=== PATIENT | female | born 1975 | race Caucasian/White ===

== ENCOUNTER 2018-07-30 16:41 | Emergency (ER) | payer MEDICAID ==
[2018-07-30 16:47] VITALS: BP 135/87
[2018-07-30] MEDS ORDERED: DIPH/PERTUSS(ACELL)/TETANUS VAC/PF 0.5 ML SYR (>=10YO) IM ONE (17:22)
[2018-07-30] MEDS ORDERED: CEPHALEXIN 500 MG CAPSULE PO ONE (17:22)
[2018-07-30] MEDS ORDERED: CIPROFLOXACIN HCL 500 MG TABLET PO ONE (17:22)
--- NOTE | 2018-07-30 17:57 | ER Document Report ---
HPI - HPI Patient complains to provider of: Puncture wound to foot Onset: Just prior to arrival Onset/Duration: Sudden Quality of pain: Achy Pain Level: 1 Context: Patient states she was walking in her yard and stepped on a board. Patient had to rest details puncture through her shoe and into her foot. Associated Symptoms: Other - Puncture wound to foot Exacerbated by: Walking Relieved by: Denies Similar symptoms previously: No Recently seen / treated by doctor: No - ROS ROS below otherwise negative: Yes Systems Reviewed and Negative: Yes All other systems reviewed and negative - CONSTITUTIONAL Constitutional: DENIES: Fever - MUSCULOSKELETAL Musculoskeletal: REPORTS: Extremity pain - DERM Skin Problems: Puncture Wound Past Medical History - General Information source: Patient - Social History Smoking Status: Never Smoker Chew tobacco use (# tins/day): No Frequency of alcohol use: Occasional Drug Abuse: None Occupation: Medical billing Lives with: Family Family History: Reviewed & Not Pertinent Patient has suicidal ideation: No Patient has homicidal ideation: No - Medical History Medical History: Negative Renal/ Medical History: Denies: Hx Peritoneal Dialysis Past Surgical History: Reports: Hx Cardiac Catheterization - x3 Vertical Provider Document - CONSTITUTIONAL Agree With Documented VS: Yes Exam Limitations: No Limitations General Appearance: WD/WN, No Apparent Distress - INFECTION CONTROL TRAVEL OUTSIDE OF THE [place] IN LAST 30 DAYS: No - HEENT HEENT: Atraumatic, Normocephalic - NECK Neck: Normal Inspection - RESPIRATORY Respiratory: Breath Sounds Normal, No Respiratory Distress - CARDIOVASCULAR Cardiovascular: Regular Rate, Regular Rhythm Pulses: Normal: Dorsalis pedis - MUSCULOSKELETAL/EXTREMETIES Musculoskeletal/Extremeties: MAEW - NEURO Level of Consciousness: Awake, Alert, Appropriate Motor/Sensory: No Motor Deficit - DERM Integumentary: Warm, Dry Notes: Puncture wound x2 to plantar surface of left foot, visible retained foreign body to 1 of the puncture wounds. Course - Re-evaluation Re-evalutation: 07/30/18 18:38 Puncture wounds were anesthetized with 1% lidocaine and wound explored, bits of dark material concerning for pieces of the shoe were removed from the wound. - Vital Signs Vital signs: Temp Pulse Resp BP Pulse Ox 97.8 F 63 18 135/87 H 100 07/30/18 16:46 07/30/18 16:46 07/30/18 16:46 07/30/18 16:46 07/30/18 16:46 Discharge - Discharge Clinical Impression: Foreign body in subcutaneous tissue Puncture wound of foot, left Qualifiers: Encounter type: initial encounter Qualified Code(s): S91.332A - Puncture wound without foreign body, left foot, initial encounter Condition: Stable Disposition: HOME, SELF-CARE Instructions: Prophylactic Antibiotic ([facility]), Puncture Wound ([facility]), Tetanus Immunization Given ([facility]) Additional Instructions: Return immediately for any new or worsening symptoms Followup with your primary care provider, call tomorrow to make a followup appointment Immediately for any signs of infection including increased pain, fever, redness purulent drainage or any other concerns Prescriptions: Cephalexin Monohydrate [Keflex 500 mg Capsule] 500 mg PO Q6H 5 Days capsule Ciprofloxacin HCl [Cipro 500 mg Tablet] 500 mg PO BID #10 tablet Referrals: [facility]) [Provider Group] - Follow up as needed
== END 2018-07-30 18:53 | disposition home or self-care (01) ==
LOC: ER 16:41
DX: S91.342A Puncture wound with foreign body, left foot, initial encounter (principal); W45.0XXA Nail entering through skin, initial encounter
CPT/HCPCS: 99283; 90471; 90715; J3490

== ENCOUNTER → 2018-08-25 | Outpatient (CLI) | payer MEDICAID ==
--- NOTE | 2018-08-25 17:08 | RADIOLOGY REPORT (SQ) ---
EXAM DESCRIPTION: LUMBAR SPINE 2 VIEWS COMPLETED DATE/TIME: 08/25/2018 4:51 pm REASON FOR STUDY: LOW BACK PAIN M54.5 LOW BACK PAIN COMPARISON: None. NUMBER OF VIEWS: Two views. TECHNIQUE: AP and lateral radiographic images acquired of the lumbar spine. LIMITATIONS: None. FINDINGS: MINERALIZATION: Normal. SEGMENTATION: Normal. No transitional anatomy. ALIGNMENT: Normal. VERTEBRAE: Maintained height. No fracture or worrisome bone lesion. DISCS: Disc space loss of height at T11-12, L4-5, and L5-S1 POSTERIOR ELEMENTS: Pedicles and facets are intact. No pars defect or posterior arch defects. HARDWARE: None in the spine. PARASPINAL SOFT TISSUES: Normal. PELVIS: Not included in the field of view. SI joints unremarkable OTHER: No other significant finding. IMPRESSION: Mild degenerative disc changes as above TECHNICAL DOCUMENTATION: JOB ID: [id number] [employer]- All Rights Reserved Reading location - IP/workstation name: [email or web address]
== END ==
LOC: OD 16:20
PROVIDERS: ATTEND Family Medicine
DX: M54.5 Low back pain (principal)
CPT/HCPCS: 72100

== ENCOUNTER → 2018-12-12 | Outpatient (CLI) | payer BC ==
--- NOTE | 2018-12-12 17:58 | RADIOLOGY REPORT (SQ) ---
EXAM DESCRIPTION: SHOULDER RIGHT 2 OR MORE VIEWS COMPLETED DATE/TIME: 12/12/2018 5:39 pm REASON FOR STUDY: PAIN IN RIGHT SHOULDER M25.511 PAIN IN RIGHT SHOULDER COMPARISON: None. NUMBER OF VIEWS: Three views. TECHNIQUE: Internal rotation, external rotation, and Y view images acquired of the right shoulder. LIMITATIONS: None. FINDINGS: MINERALIZATION: Normal. BONES: No acute fracture or dislocation. No worrisome bone lesions. JOINTS: No glenohumeral dislocation. Acromioclavicular joint unremarkable. VISUALIZED LUNGS AND RIBS: No pneumothorax. No rib fracture. SOFT TISSUES: No radiopaque foreign body. OTHER: No other significant finding. IMPRESSION: NEGATIVE STUDY OF THE RIGHT SHOULDER. NO RADIOGRAPHIC EVIDENCE OF ACUTE INJURY. TECHNICAL DOCUMENTATION: JOB ID: [id number] [employer]- All Rights Reserved Reading location - IP/workstation name: [email or web address]
== END ==
LOC: OD 17:13
PROVIDERS: ATTEND Family Medicine Geriatric Medicine
DX: M75.101 Unspecified rotator cuff tear or rupture of right shoulder, not specified as traumatic (principal); M25.511 Pain in right shoulder

== ENCOUNTER → 2018-12-13 | Outpatient (CLI) | payer BC ==
--- NOTE | 2018-12-13 12:23 | WOMENS IMAGING REPORT ---
EXAM DESCRIPTION: U/S PELVIS NON-OB COMPLETED DATE/TIME: 12/13/2018 9:40 am REASON FOR STUDY: MENORRHAGIA WITH REGULAR CYCLE;N92.0 Z12.31 ENCNTR SCREEN MAMMOGRAM FOR MALIGNANT NEOPLASM OF ARLEN COMPARISON: None. TECHNIQUE: Dynamic and static grayscale images acquired of the pelvis via transabdominal approach an d recorded on PACS. Additional selected color Doppler and spectral images recorded. LIMITATIONS: None. FINDINGS: UTERUS: Uterus measures 10 x 5 x 6 cm in size. Small posterior uterine body fibroid, 2 cm in size. ENDOMETRIAL STRIPE: No focal or generalized thickening. No masses. 9 mm thickness. CERVIX: No nabothian cysts. RIGHT OVARY AND DOPPLER: Normal size, 3.7 x 2.8 x 2.2 cm. No worrisome masses. Normal arterial vascul ar flow without evidence for torsion. LEFT OVARY AND DOPPLER: Normal size, 3.2 x 1.6 x 2.2 cm. No worrisome masses. Normal arterial vascula r flow without evidence for torsion. FREE FLUID: None noted. OTHER: No other significant finding. IMPRESSION: ESSENTIALLY NORMAL PELVIC ULTRASOUND FOR AGE, TRANSABDOMINAL SCAN. TECHNICAL DOCUMENTATION: JOB ID: [id number] [employer]- All Rights Reserved Rev-03/18 Reading location - IP/workstation name: [email or web address]
== END ==
LOC: WI 07:54
PROVIDERS: ATTEND Family Medicine
DX: N92.0 Excessive and frequent menstruation with regular cycle (principal)
CPT/HCPCS: 76856

== ENCOUNTER → 2020-07-18 | Outpatient (CLI) | payer BC, MEDICAID ==
--- NOTE | 2020-07-18 12:07 | WOMENS IMAGING REPORT ---
EXAM DESCRIPTION: 3D SCREENING MAMMO BILAT IMAGES COMPLETED DATE/TIME: 07/18/2020 11:25 am REASON FOR STUDY: Z12.31 Z12.31 ENCOUNTER FOR SCREENING MAMMOGRAM FOR MALIGNANT NEOPLASM OF B Z12.31 ENCNTR SCREEN MAMMOGRAM FOR MALIGNANT NEOPLASM OF ARLEN COMPARISON: 12/13/2018 EXAM PARAMETERS: Standard craniocaudal and mediolateral oblique views of each breast recorded using digital acquisition and breast tomosynthesis. Read with the assistance of CAD. .[facility] - R2 Vice President Risk Management Version 9.2 LIMITATIONS: None. FINDINGS: RIGHT BREAST MASSES: No suspicious masses. CALCIFICATIONS: No new or suspicious calcifications. ARCHITECTURAL DISTORTION: None. ASYMMETRY: Focal asymmetry upper outer quadrant about 6 cm deep to the nipple. OTHER: No other significant findings. LEFT BREAST MASSES: No suspicious masses. CALCIFICATIONS: No new or suspicious calcifications. ARCHITECTURAL DISTORTION: None. ASYMMETRY: None noted. OTHER: No other significant findings. IMPRESSION: Focal asymmetry right breast. 0 Incomplete: Needs Additional Imaging Evaluation and/or prior Mammograms for Comparison. BREAST DENSITY: b. There are scattered areas of fibroglandular density. BIRAD: ASSESSMENT: 0 Incomplete: Needs Additional Imaging Evaluation and/or prior Mammograms for C omparison. RECOMMENDATION: RECOMMENDED FOLLOW-UP: Cone compression views and potential ultrasound right breast. The patient will be contacted for additional imaging. COMMENT: The patient has been notified of the results by letter per MQSA requirements. Additional no tification policies are in place for contacting patient with suspicious or incomplete findings. Quality ID #225: The [employer] recommends an annual screening mammogram for women aged 40 years or over. This facility utilizes a reminder system to ensure that all patients receive reminder letters, and/or direct phone calls for appointments. This includes reminders for routine scr eening mammograms, diagnostic mammograms, or other Breast Imaging Interventions when appropriate. Th is patient will be placed in the appropriate reminder system. TECHNICAL DOCUMENTATION: FINDING NUMBER: (1) ASSESSMENT: (1) JOB ID: [id number] 2010 [employer]- All Rights Reserved Reading location - IP/workstation name: [email or web address]
== END ==
LOC: WI 10:52
PROVIDERS: ATTEND Family Medicine
DX: Z12.31 Encounter for screening mammogram for malignant neoplasm of breast (principal); N64.89 Other specified disorders of breast
CPT/HCPCS: 77063; 77067

== ENCOUNTER → 2020-07-29 | Outpatient (CLI) | payer BC, MEDICAID ==
--- NOTE | 2020-07-29 11:32 | WOMENS IMAGING REPORT ---
EXAM DESCRIPTION: RIGHT DIAGNOSTIC MAMMO W/CAD IMAGES COMPLETED DATE/TIME: 07/29/2020 11:15 am REASON FOR STUDY: UNSPECIFIED LUMP IN THE RIGHT BREAST, UPPER OUTER QUADRANT N63.11 UNSPECIFIED CELY MP IN THE RIGHT BREAST, UPPER OUTER DEVI COMPARISON: July 2020 and prior EXAM PARAMETERS: True lateral. Spot compression in the CC projection. LIMITATIONS: None. FINDINGS: BREAST LATERALITY: right MASSES: No suspicious masses. CALCIFICATIONS: No new or suspicious calcifications. ARCHITECTURAL DISTORTION: None. ASYMMETRY: None noted. OTHER: No other significant findings. IMPRESSION: Negative mammogram BREAST DENSITY: c. The breasts are heterogeneously dense, which may obscure small masses. BIRAD: ASSESSMENT: 1 Negative. RECOMMENDATION: RECOMMENDED FOLLOW UP: Birads 1 or 2: The patient should resume routine screening . SPECIFIC INTERVENTION/IMAGING/CONSULTATION RECOMMENDED:No additional intervention/ imaging/consultati on needed at this time. COMMUNICATION:The negative/benign results were communicated to the patient. COMMENT: The patient has been notified of the results by letter per MQSA requirements. Additional no tification policies are in place for contacting patient with suspicious or incomplete findings. Quality ID #225: The [employer] recommends an annual screening mammogram for women aged 40 years or over. This facility utilizes a reminder system to ensure that all patients receive reminder letters, and/or direct phone calls for appointments. This includes reminders for routine scr eening mammograms, diagnostic mammograms, or other Breast Imaging Interventions when appropriate. Th is patient will be placed in the appropriate reminder system. TECHNICAL DOCUMENTATION: FINDING NUMBER: (1) ASSESSMENT: (1) JOB ID: [id number] 2010 [employer]- All Rights Reserved Reading location - IP/workstation name: [email or web address]
== END ==
LOC: WI 10:39
PROVIDERS: ATTEND Family Medicine
DX: R92.2 Inconclusive mammogram (principal); N63.11 Unspecified lump in the right breast, upper outer quadrant
CPT/HCPCS: 77065

== ENCOUNTER → 2020-08-28 | Outpatient (CLI) | payer BC, MEDICAID ==
[2020-08-28 12:51] LABS: ALBUMIN 4.1 g/dL (3.5-5.0); ALKALINE PHOSPHATASE 63 U/L (38-126); ANION GAP 10 (5-19); ASPARTATE AMINO TRANSFERASE 18 U/L (14-36); BILIRUBIN,DIRECT 0.2 mg/dL (0.0-0.4); BILIRUBIN,TOTAL 0.7 mg/dL (0.2-1.3); BLOOD UREA NITROGEN 13 mg/dL (7-20); CALCIUM 9.3 mg/dL (8.4-10.2); CARBON DIOXIDE 25 mmol/L (22-30); CHLORIDE 102 mmol/L (98-107); CHOLESTEROL 183.19 mg/dL (0-200); GLUCOSE 93 mg/dL (75-110); POTASSIUM 4.3 mmol/L (3.6-5.0); TOTAL PROTEIN 7.5 g/dL (6.3-8.2); TRIGLYCERIDES 108 mg/dL (<150)
[2020-08-28 13:02] LABS: DIRECT LDL 103 mg/dL (<100)
[2020-08-28 15:13] LABS: APPEARANCE,URINE CLOUDY; BILIRUBIN,URINE NEGATIVE (NEGATIVE); COLOR,URINE YELLOW; GLUCOSE, URINE NEGATIVE (NEGATIVE); KETONES,URINE NEGATIVE (NEGATIVE); LEUKOCYTE ESTERASE,URINE TRACE (NEGATIVE); NITRITE,URINE POSITIVE (NEGATIVE); PROTEIN,URINE NEGATIVE (NEGATIVE); URIC ACID CRYSTALS,URINE MODERATE /HPF; URINE SPECIFIC GRAVITY 1.019; UROBILINOGEN,URINE NEGATIVE mg/dL (<2.0)
== END ==
LOC: OD 10:53
PROVIDERS: ATTEND Family Medicine
DX: R03.0 Elevated blood-pressure reading, without diagnosis of hypertension (principal)
CPT/HCPCS: 36415; 80053; 80061; 81001; 84443

== ENCOUNTER 2020-08-30 18:04 | Emergency (ER) | payer BC, MEDICAID ==
--- NOTE | 2020-08-30 18:22 | ER Document Report ---
ED Medical Screen (RME) - General Chief Complaint: Abdominal Pain Stated Complaint: ABDOMINAL PAIN/BLOOD IN URINE Time Seen by Provider: 08/30/20 18:20 Primary Care Provider: NICHOLE LAL MD [Primary Care Provider] - Follow up as needed TRAVEL OUTSIDE OF THE [place] IN LAST 30 DAYS: No - HPI Notes: 08/30/20 18:22 Patient is a 45-year-old female with complaint of abdominal pain. She states that the pain has been going on for the last month. She describes it as a crampy discomfort. The pain is diffuse across the entire abdomen. No loss of appetite, nausea, or vomiting. She had a urinalysis at work today that showed microscopic hematuria, and no signs of urinary tract infection. She has a history of hemorrhoidectomy and sigmoidoscopy. Denies fever, but reports chills, body aches, and sweating. I performed a brief medical screening exam on the patient determined that the patient needs further evaluation and management by main side provider. I have placed initial orders to help expedite care.. - Related Data Allergies/Adverse Reactions: No Known Allergies Allergy (Verified 08/30/20 18:20) Past Medical History Renal/ Medical History: Denies: Hx Peritoneal Dialysis Past Surgical History: Reports: Hx Cardiac Catheterization - x3 Physical Exam - Vital signs Vitals: Temp Pulse Resp BP Pulse Ox 98.4 F 76 18 144/73 H 98 08/30/20 18:13 08/30/20 18:13 08/30/20 18:13 08/30/20 18:13 08/30/20 18:13 Course - Vital Signs Vital signs: Temp Pulse Resp BP Pulse Ox 98.4 F 76 18 144/73 H 98 08/30/20 18:13 08/30/20 18:13 08/30/20 18:13 08/30/20 18:13 08/30/20 18:13 Doctor's Discharge - Discharge Referrals: NICHOLE LAL MD [Primary Care Provider] - Follow up as needed
[2020-08-30 19:07] LABS: ABSOLUTE LYMPHOCYTES (AUTO) 1.3 10^3/uL (0.5-4.7); ABSOLUTE MONOCYTES (AUTO) 0.5 10^3/uL (0.1-1.4); ABSOLUTE NEUT (AUTO) 2.7 10^3/uL (1.7-8.2); BASOPHILS % (AUTO) 0.8 % (0-2); HEMATOCRIT 35.9 % (36.0-47.0); HEMOGLOBIN 12.3 g/dL (12.0-15.5); LYMPHOCYTES % (AUTO) 28.7 % (13-45); MEAN CORPUSCULAR HGB CONC 34.2 g/dL (32.0-36.0); MEAN CORPUSCULAR VOLUME 79 fl (80-97); MONOCYTES % (AUTO) 10.5 % (3-13); PLATELET COUNT 300 10^3/uL (150-450); RED BLOOD COUNT 4.55 10^6/uL (3.72-5.28); RED CELL DISTRIBUTION WIDTH 17.3 % (11.5-14.0); TOTAL CELLS COUNTED % (AUTO) 100 %; WHITE BLOOD COUNT 4.5 10^3/uL (4.0-10.5)
[2020-08-30 19:08] LABS: APPEARANCE,URINE CLEAR; BILIRUBIN,URINE NEGATIVE (NEGATIVE); COLOR,URINE YELLOW; GLUCOSE, URINE NEGATIVE (NEGATIVE); KETONES,URINE NEGATIVE (NEGATIVE); PROTEIN,URINE NEGATIVE (NEGATIVE); URINE SPECIFIC GRAVITY 1.025; UROBILINOGEN,URINE NEGATIVE mg/dL (<2.0)
[2020-08-30 19:26] LABS: ALBUMIN 4.4 g/dL (3.5-5.0); ALKALINE PHOSPHATASE 67 U/L (38-126); ANION GAP 11 (5-19); ASPARTATE AMINO TRANSFERASE 19 U/L (14-36); BILIRUBIN,DIRECT 0.1 mg/dL (0.0-0.4); BILIRUBIN,TOTAL 0.3 mg/dL (0.2-1.3); BLOOD UREA NITROGEN 16 mg/dL (7-20); CALCIUM 10.1 mg/dL (8.4-10.2); CARBON DIOXIDE 26 mmol/L (22-30); CHLORIDE 101 mmol/L (98-107); GLUCOSE 108 mg/dL (75-110); POTASSIUM 4.1 mmol/L (3.6-5.0); TOTAL PROTEIN 7.8 g/dL (6.3-8.2)
--- NOTE | 2020-08-31 00:46 | ER Document Report ---
ED General - General Chief Complaint: Abdominal Pain Stated Complaint: ABDOMINAL PAIN/BLOOD IN URINE Time Seen by Provider: 08/30/20 18:20 Primary Care Provider: NICHOLE LAL MD [Primary Care Provider] - Follow up as needed Notes: 45 year old female arrives with complaints of epigastric pain in her abdomen intermittently for perhaps a week. No fever or chills and no known covid exposure. 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 She knows she deals with fibroids, and has had c sections in the past and hemorrhoid surgery. Nonsmoker. Drinks very rarely. Awoke with epigastric pain about 3-4 days ago. TRAVEL OUTSIDE OF THE [place] IN LAST 30 DAYS: No - HPI Onset/Duration: Gradual Severity: Moderate Associated symptoms: None Exacerbated by: Denies Relieved by: Denies - Related Data Allergies/Adverse Reactions: No Known Allergies Allergy (Verified 08/30/20 18:20) Past Medical History - Social History Smoking Status: Unknown if Ever Smoked Chew tobacco use (# tins/day): No Drug Abuse: None Family History: Reviewed & Not Pertinent Patient has homicidal ideation: No - Past Medical History Cardiac Medical History: Reports: Hx Hypertension - dx, wed, lisinipril 5mg rx Renal/ Medical History: Denies: Hx Peritoneal Dialysis Past Surgical History: Reports: Hx Cardiac Catheterization - x3 Review of Systems - Review of Systems Constitutional: No symptoms reported EENT: No symptoms reported Cardiovascular: No symptoms reported Respiratory: No symptoms reported Gastrointestinal: See HPI, Abdominal pain Genitourinary: No symptoms reported Female Genitourinary: No symptoms reported Musculoskeletal: No symptoms reported Skin: No symptoms reported Hematologic/Lymphatic: No symptoms reported Neurological/Psychological: No symptoms reported Physical Exam - Vital signs Vitals: Temp Pulse Resp BP Pulse Ox 98.4 F 76 18 144/73 H 98 08/30/20 18:13 08/30/20 18:13 08/30/20 18:13 08/30/20 18:13 08/30/20 18:13 Interpretation: Normal - General General appearance: Appears well, Alert - HEENT Head: Normocephalic, Atraumatic Eyes: Normal Pupils: PERRL - Respiratory Respiratory status: No respiratory distress Chest status: Nontender Breath sounds: Normal Chest palpation: Normal - Cardiovascular Rhythm: Regular Heart sounds: Normal auscultation Murmur: No - Abdominal Inspection: Normal Distension: No distension Bowel sounds: Normal Tenderness: Nontender Organomegaly: No organomegaly - Back Back: Normal, Nontender - Extremities General upper extremity: Normal inspection, Nontender, Normal color, Normal ROM, Normal temperature General lower extremity: Normal inspection, Nontender, Normal color, Normal ROM, Normal temperature, Normal weight bearing. 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 Single mom. Epigastric and bilat upper quad pain increased today. This seems likely inflamatory and will treat as such. Discussed seeing Dr. Lal in follow up and she expressed understanding to have a gb sono done as a morning fasting study. She will return here for worsening - chest pain, fever, vomiting or other concerns. Do not feel imaging is needed at this time as abd is soft wiht nl bowel sounds. - Vital Signs Vital signs: Temp Pulse Resp BP Pulse Ox 98.4 F 68 18 149/64 H 100 08/30/20 18:13 08/30/20 22:39 08/30/20 18:13 08/30/20 22:39 08/30/20 22:39 - Laboratory Result Diagrams: 08/30/20 18:41 08/30/20 18:41 Laboratory results interpreted by me: 08/30/20 08/30/20 18:41 18:41 Hct 35.9 L MCV 79 L RDW 17.3 H Urine Blood SMALL H Discharge - Discharge Clinical Impression: Epigastric pain Condition: Stable Disposition: HOME, SELF-CARE Instructions: Abdominal Pain ([facility]), Antispasmodics ([facility]) Additional Instructions: See to doctor in follow up or call to have a gallbladder ultrasound scheduled. Take the medicine as directed. Please return here for increased pain, fever, vomiting or other problems or concerns. Medicine has been sent to [facility] in [place]. Forms: Return to Work Referrals: NICHOLE LAL MD [Primary Care Provider] - Follow up as needed
[2020-08-31 01:12] VITALS: BP 127/71
== END 2020-08-31 01:17 | disposition home or self-care (01) ==
LOC: ER 18:04
DX: R10.13 Epigastric pain (principal); I10 Essential (primary) hypertension
CPT/HCPCS: 36415; 80053; 81001; 85025; 99283